=== PATIENT | female | born 1945 | race Caucasian/White ===

== ENCOUNTER → 2016-06-01 | Outpatient (CLI) | payer OTHER, BC ==
[~2016-06-01] MED LIST: ALPR0.25 PO; CLR10 PO; CYCL0.05 OP; DILT30TA PO; FAMO1TAB68 PO; LPT10 PO; SIME1CAP28 PO; SNK PO
--- NOTE | 2016-06-01 16:34 | DIAGNOSTIC IMAGING REPORT ---
CHEST 2 VIEWS ROUTINE CLINICAL HISTORY: BRONCHITIS dyspnea COMPARISON STUDY: 11/03/2015 FINDINGS: Lungs are clear. Diaphragms smooth. No evidence for cardiac enlargement. Mild emphysematous change. IMPRESSION: Chronic change. No acute process. Mild emphysematous change. Electronically signed by: Al Sullivan M.D. 06/01/2016 4:32 PM
== END | disposition home or self-care (01) ==
LOC: C.RADBC 16:21
PROVIDERS: ATTEND Family Medicine
DX: J06.9 Acute upper respiratory infection, unspecified (principal); J40 Bronchitis, not specified as acute or chronic

== ENCOUNTER → 2016-08-19 | Outpatient (CLI) | payer OTHER, BC ==
--- NOTE | 2016-08-19 13:58 | DIAGNOSTIC IMAGING REPORT ---
Study: Fusion CT of the sinuses HISTORY: Chronic sinusitis. FINDINGS: All major sinuses are clear. Ostiomeatal units are patent bilaterally. There is mild hyperplastic changes the nasal turbinates. All major osseous structures are intact. There is no evidence for bony or destructive process. IMPRESSION: 1. Mild hyperplastic changes of the nasal turbinates. 2. All major sinuses are clear Electronically signed by: Al Sullivan M.D. 08/19/2016 1:56 PM Dictated Date/Time: 08/19/2016 1:51 PM
== END | disposition home or self-care (01) ==
LOC: C.CTS 13:31
DX: J32.9 Chronic sinusitis, unspecified (principal)

== ENCOUNTER → 2016-11-17 | Outpatient (CLI) | payer OTHER, BC ==
--- NOTE | 2016-11-17 14:48 | MAMMOGRAPHY REPORT ---
BILATERAL DIGITAL SCREENING MAMMOGRAM WITH CAD: 11/17/2016 CLINICAL HISTORY: Routine screening. Patient has no complaints. TECHNIQUE: Bilateral CC, MLO and right XCCL views were obtained. Current study was also evaluated wi th a Computer Aided Detection (CAD) system. COMPARISON: Comparison is made to exams dated: 11/17/2015 mammogram, 11/14/2014 mammogram, 10/26/2013 m ammogram, 10/03/2012 mammogram, 04/01/2011 mammogram - [facility], and 11/05/2008 mammog gurinder. BREAST COMPOSITION: There are scattered areas of fibroglandular density in both breasts. FINDINGS: The parenchymal pattern is unchanged. No developing mass, architectural distortion or clus ter of suspicious microcalcifications is seen in either breast. IMPRESSION: ACR BI-RADS CATEGORY 2: BENIGN There is no mammographic evidence of malignancy. A 1 year screening mammogram is recommended. The pa tient will receive written notification of the results. Approximately 10% of breast cancers are not detected with mammography. A negative mammographic report should not delay biopsy if a clinically suggestive mass is present. Aarti Hook M.D. ay/:11/17/2016 12:54:27 [employer] Salesperson: Laurita REID(Yusra)([place])([place]), [facility] letter sent: Normal 1/2 BI-RADS Code: ACR BI-RADS Category 2: Benign
== END | disposition home or self-care (01) ==
LOC: C.MAMM 12:12
PROVIDERS: ATTEND Family Medicine
DX: Z12.31 Encounter for screening mammogram for malignant neoplasm of breast (principal)

== ENCOUNTER → 2017-04-15 | Outpatient (CLI) | payer OTHER, BC ==
--- NOTE | 2017-04-15 12:35 | DIAGNOSTIC IMAGING REPORT ---
R FOOT MIN 3 VIEWS ROUTINE HISTORY: 72 years-old Female R FOOT PAIN,MID FOOT acute right foot pain with history of remote injury COMPARISON: None available TECHNIQUE: 3 views of the right foot FINDINGS: The bones are mildly demineralized. Hallux valgus deformity is noted with mild to moderate first MTP joint degenerative changes with bunion formation. Mostly mild degenerative changes are seen throughout the interphalangeal joints. No acute fracture, dislocation or stress fracture notified. Spurring about the calcaneus is noted at the Achilles and plantar insertion site. No opaque foreign body. Vascular calcifications are noted. IMPRESSION: 1. Mild demineralized appearance of the bones without acute fracture or dislocation. 2. Hallux valgus deformity with mild to moderate first MTP joint degenerative changes and bunion formation. 3. Peripheral vascular disease. The above report was generated using voice recognition software. It may contain grammatical, syntax or spelling errors. Electronically signed by: Hank Decker M.D. 04/15/2017 12:34 PM Dictated Date/Time: 04/15/2017 12:31 PM
== END | disposition home or self-care (01) ==
LOC: C.RAD1850 12:09
PROVIDERS: ATTEND Family Medicine
DX: M20.11 Hallux valgus (acquired), right foot (principal); M89.8X7 Other specified disorders of bone, ankle and foot; M21.611 Bunion of right foot; I73.9 Peripheral vascular disease, unspecified

== ENCOUNTER → 2017-04-29 | Outpatient (CLI) | payer OTHER, BC ==
--- NOTE | 2017-04-29 16:33 | DIAGNOSTIC IMAGING REPORT ---
RIGHT KNEE 2 VIEWS HISTORY: Right knee pain. COMPARISON: None. FINDINGS: There is no fracture or dislocation. Soft tissues are unremarkable. No radiopaque foreign bodies. Mild cartilage space narrowing within the medial compartment consistent with osteoarthritis. No knee effusion. IMPRESSION: No fractures. Electronically signed by: Joe Armstrong M.D. 04/29/2017 4:31 PM Dictated Date/Time: 04/29/2017 4:30 PM
== END | disposition home or self-care (01) ==
LOC: C.RAD1850 16:10
PROVIDERS: ATTEND Family Medicine
DX: M25.561 Pain in right knee (principal)

== ENCOUNTER → 2017-06-20 | Outpatient (CLI) | payer OTHER, BC ==
--- NOTE | 2017-06-20 16:45 | DIAGNOSTIC IMAGING REPORT ---
CHEST 2 VIEWS ROUTINE HISTORY: 72 years-old Female COUGH acute cough COMPARISON: Chest radiographs 06/01/2016 TECHNIQUE: PA and lateral views of the chest FINDINGS: Cardiomediastinal and hilar silhouettes are within normal limits. Atherosclerosis of the aorta. Emphysematous changes with mild hyperinflation. There is no pneumothorax, pleural effusion, focal airspace consolidation or overt pulmonary edema. Multilevel endplate spurring of the spine. Mild dextroscoliosis of the mid thoracic spine. IMPRESSION: No acute process. The above report was generated using voice recognition software. It may contain grammatical, syntax or spelling errors. Electronically signed by: Hank Decker M.D. 06/20/2017 4:44 PM Dictated Date/Time: 06/20/2017 4:43 PM
== END | disposition home or self-care (01) ==
LOC: C.RADBC 16:31
PROVIDERS: ATTEND Family Medicine
DX: R05 Cough (principal); Z87.01 Personal history of pneumonia (recurrent)